=== PATIENT | female | born 2000 | race Caucasian/White ===

== ENCOUNTER 2021-05-14 13:00 | Outpatient (RCR) | payer OTHER, SELFPAY ==
--- NOTE | 2021-04-18 12:01 | PTOPEVAL ---
INITIAL PHYSICAL THERAPY EVALUATION and PLAN OF CARE Thank you for referring Stella Amaya to [facility].? Stella is scheduled to be seen for physical therapy? 1x/week for 5 weeks. Please review, sign, date and return this plan of care TAM. I agree with and certify that the following plan of care is medically necessary. Referring Physician Date Admitting Provider: Attending Provider: Deisy Workman, [employer] PACKER Referring Provider: *PT Outpatient Evaluation Start: 04/18/21 10:52 Freq: Status: Active Protocol: Document 04/18/21 10:45 TALIA (Rec: 04/18/21 11:58 TALIA [id number]) Therapy Assessment Status Assessment Status Assessment Status Evaluation Outpatient Past Medical History Past Medical History No Past Medical/Surgical History Patient/Family Denies Significant Past Medical/ Surgical History Evaluation Information Problem Diagnosis Dyspareunia Onset ~ 2 years ago Subjective Information Initially had discomfort with Query Text:As Reported By Patient/ intercourse - insertion and Family penetration - and it has hurt ever since. Also noticed hip adductors are tight - difficulty stretching them. Will have discomfort with insertion and removal of tampon. Just randomly - had difficulty with walking - further she went - worse things felt. Prior Level of Function Activity Level (Last 3 Months) Occupation just began with moving [employer] Medications Home Meds (Include: OTC, RX, Vitamins, control Herbals, Dose, Route,and Frequency) Query Text:Home Med Entries Will No Longer Recall From Past Visits. Home Meds Must Be Re-entered With Each Visit. Home Setting Home Type House Environmental Barriers Stairs, None Living Situation With Relatives Mobility Assistive Devices (Used Last 3 None Months) Comments Additional Prior Level of Function recreation - sleep, watch Comments Netflix, go for walk Pain Assessment Timing of Pain Assessment Timing of Pain Assessment Assessment Pain Scale Pain Scale Used Numeric (1 - 10) Self Report Pain Assessment Vagina Reported Pain Level 0 Pain Description Shooting Other Pain Description feels like getting a carpet burn Lowest Pain Intensity 0 Greatest Pain Intensity
--- NOTE | 2021-05-14 13:52 | PTOPEVAL ---
PHYSICAL THERAPY DISCHARGE SUMMARY Thank you for referring Stella Amaya to [facility].? Stella has been seen in PT x 4 visits. She has met goals set, no longer having discomfort with intercourse. She is ready for d/c from PT to [facility]. I agree with Stella's discharge from PT. Referring Physician Date Admitting Provider: Attending Provider: Deisy Workman, [employer]CHITECT Referring Provider: Therapy Assessment Status Assessment Status Assessment Status Discharge Outpatient Past Medical History Past Medical History No Past Medical/Surgical History Patient/Family Denies Significant Past Medical/ Surgical History Evaluation Information Problem Diagnosis Dyspareunia Subjective Information Stella reports using small Query Text:As Reported By Patient/ ALLBall - increase in Family discomfort while using it. Did try missionary position - with boyfriend going lower - aiming towards back rather than abdominal region - less pain. Only has pain with intercourse. Pain Assessment Timing of Pain Assessment Timing of Pain Assessment Assessment Pain Scale Pain Scale Used Numeric (1 - 10) Self Report Pain Assessment Vagina Reported Pain Level 0 Greatest Pain Intensity 2 Cervical and Lumbar ROM Lumbar ROM Lumbar ROM WNL Normal Lumbar Segmental Motion Yes Palpation Assessment Palpation Palpation Pelvis/sacrum level in standing - equal SIJ mobility Supine - pelvis level - equal Squish mobility - mild R sided discomfort/tightness with soft tissue mob Pelvic Health Evaluation Pelvic Floor Assessment Permission Received for External/ Yes Internal Perineal Exam External Perineal Body Palpation no tenderness Internal Perineal Body Palpation no tenderness at introitus, inferior and posterior pubic bone, levator ani regions - tightness with soft tissue present at introitus and L levator ani - but stretches well without discomfort Additional Comments pubic bone palpation externally - no tenderness superiorly or inferiorly Rehab Teaching Rehab Teaching Teaching Topic Rehab Teaching Topic Components Anatomy/Physiology,Positioning As Pertains To Technique R
== END 2021-05-14 15:55 | disposition home or self-care (01) ==
LOC: ANHPT 13:00
PROVIDERS: PCP Pediatrics Adolescent Medicine; Visit Provider Nurse Practitioner Obstetrics & Gynecology
DX: N94.10 Unspecified dyspareunia (principal)
CPT/HCPCS: 97140; 97161

== ENCOUNTER 2022-09-29 14:56 | Outpatient (CLI) | payer OTHER, SELFPAY ==
--- NOTE | ~2022-09-29 | US_ITS ---
EXAMINATION: US soft tissue lower back DATE: 09/29/2022 16:34 INDICATION: MASS OF SKIN OF BACK . TECHNIQUE: Grayscale and Doppler ultrasound images of the right lower back were obtained. COMPARISON: None. FINDINGS: The area of clinical interest was sonographically interrogated, revealing only normal derma l and subcutaneous tissue. No solid or cystic mass detected. IMPRESSION: No sonographic abnormality detected in the right lower back. Reviewed, dictated and finalized at location K. ELLANT ASSEMBLER
== END 2022-09-29 14:57 | disposition home or self-care (01) ==
DX: R22.2 Localized swelling, mass and lump, trunk (principal)
CPT/HCPCS: 76705

== ENCOUNTER 2022-11-03 14:23 | Outpatient (CLI) | payer OTHER, SELFPAY ==
--- NOTE | ~2022-11-03 | XR_ITS ---
XR shoulder LT min 2V 11/03/2022 14:46 INDICATION: Left shoulder pain PROCEDURE: 4 views left shoulder COMPARISON: No prior studies for comparison. FINDINGS: Fracture, dislocation or subluxation is not identified. The soft tissues appear within norm al limits. No foreign bodies are identified. IMPRESSION: 1: NO ACUTE BONE OR JOINT ABNORMALITY IDENTIFIED. Reviewed, dictated and finalized at location B. PLATE STAMPER
--- NOTE | ~2022-11-03 | XR_ITS ---
Lumbosacral Spine: AP and lateral views Clinical History: Pain Findings: The normal lordotic curve is maintained. The vertebral bodies and posterior elements are i ntact. The intervertebral disc spaces are preserved. The sacroiliac joints are normally outlined. Impression: No significant abnormality. Reviewed, dictated and finalized at [facility]. ERY PACKER Impression: No significant abnormality.
== END 2022-11-03 14:24 | disposition home or self-care (01) ==
DX: M54.9 Dorsalgia, unspecified (principal); M25.512 Pain in left shoulder
CPT/HCPCS: 72100; 73030

== ENCOUNTER 2023-05-15 11:27 | Outpatient (CLI) | payer OTHER, SELFPAY ==
[2023-05-15 12:57] LABS: Erythrocyte Sedimentation Rate 8 mm/hr (0-20)
[2023-05-15 13:38] LABS: Complement C3 104 mg/dL (88-165); Rheumatoid Factor < 12.0 IU/ML (<12)
[2023-05-19 03:48] LABS: Thyroid Peroxidase Antibodies <1 IU/mL (<9)
[2023-05-20 22:51] LABS: Anti Cyclic Citrullinated Pept <16 Units (<20)
[2023-05-22 05:25] LABS: Anti Cardio Antibody IgM <2.0 MPL-U/mL (<20.0); Anti Cardiolipin Antibody IgA >65.0 APL-U/mL (<20.0); Anti Cardiolipin Antibody IgG 3.3 GPL-U/mL (<20.0)
[2023-05-22 05:35] LABS: Lupus dRVVT Screen 35 sec (<=45); PTT-LA Screen 34 sec (<=40)
== END 2023-05-15 11:28 | disposition home or self-care (01) ==
LOC: ANHLAB 11:29
PROVIDERS: Visit Provider Internal Medicine
DX: L68.0 Hirsutism (principal); L70.9 Acne, unspecified; R63.5 Abnormal weight gain; R76.8 Other specified abnormal immunological findings in serum; M19.90 Unspecified osteoarthritis, unspecified site
CPT/HCPCS: 36415; 84443; 85613; 85652; 85730; 86146; 86147; 86160; 86200; 86376; 86430

== ENCOUNTER 2023-11-20 14:14 | Outpatient (CLI) | payer OTHER, SELFPAY ==
[2023-11-20 15:31] LABS: Alanine Aminotransferase 21 U/L (6-35); Albumin Level 4.3 g/dL (3.5-5.1); Alkaline Phosphatase 113 U/L (38-126); Anion Gap 7 mmol/L (8-16); Aspartate Amino Transferase 24 U/L (14-36); Bilirubin,Total 0.6 mg/dL (0.2-1.3); Blood Urea Nitrogen 14 mg/dL (7-17); Calcium 9.4 mg/dL (8.4-10.2); Carbon Dioxide 24 mmol/L (22-30); Chloride 106 mmol/L (98-107); Cholesterol 137 mg/dL (0-200); Estimated Glomerular Filt Rate > 60; Glucose 101 mg/dL (65-110); HDL Direct 53 mg/dL; Potassium 4.1 mmol/L (3.4-5.0); Sodium 137 mmol/L (137-145); Triglycerides 61 mg/dL (<150)
[2023-11-20 15:50] LABS: LDL Cholesterol Direct 70 mg/dL
[2023-11-20 16:05] LABS: Hemoglobin A1C 5.3 % (<5.7)
[2023-11-20 16:09] LABS: Free T4 Free Thyroxine 1.11 ng/mL (0.78-2.19); Vitamin D 25 Hydroxy 30.9 ng/mL
[2023-11-24 13:26] LABS: DHEA-Sulfate 271 mcg/dL (18-391)
[2023-11-25 01:11] LABS: Thyroid Peroxidase Antibodies 1 IU/mL (<9)
[2023-11-25 07:23] LABS: FSH 6.2 mIU/mL (***); Insulin Level Total 3.2 uIU/mL (<=18.4); LH 26.1 mIU/mL (***); Prolactin 11.4 ng/mL (***)
[2023-11-26 09:34] LABS: Testosterone Total 22 ng/dL (2-45)
[2023-11-29 12:56] LABS: Estrogen 241 pg/mL
== END 2023-11-20 14:15 | disposition home or self-care (01) ==
LOC: ANHLAB 14:16
PROVIDERS: Visit Provider Internal Medicine
DX: R63.5 Abnormal weight gain (principal); L68.0 Hirsutism; L70.9 Acne, unspecified
CPT/HCPCS: 36415; 80053; 80061; 82306; 82607; 82627; 82672; 83001; 83002; 83036; 83498; 83525; 84146; 84402; 84403; 84439; 84443; 86376